=== PATIENT | female | born 1985 | race American Indian/Alaskan Native ===

== ENCOUNTER 2017-05-05 16:49 | Emergency (ER) | payer OTHER ==
[2017-05-05 17:03] VITALS: BMI 28.5
[2017-05-05 17:08] VITALS: TEMP 97.8
[2017-05-05] MEDS ORDERED: Sodium Chloride 0.9% 1,000 ML IV STA (17:19)
--- NOTE | 2017-05-05 17:28 | ED PDOC ---
Arrival/HPI - General Chief Complaint: GI Problem Time Seen by Provider: 05/05/17 17:16 Historian: Patient - History of Present Illness Narrative History of Present Illness (Text): 05/05/17 17:23 32yo female with no PMHx present with complaint of nausea, vomiting x 2, headache, dizziness and chills. states symptoms started after eating breakfast in a Cafeteria this morning. States the symptoms is similar to symptoms she had in the past with "stomach bug". states she came to ED because her job won't let her go home and they require her to go to the ED first. she denies abdominal pain, diarrhea, constipation, fever, chills, focal weakness, visual changes, urinary symptoms, sick contact, any other complaint. Past Medical History - Provider Review Nursing Documentation Reviewed: Yes - Past History Past History: Non-Contributing - Infectious Disease Hx of Infectious Diseases: None - Tetanus Immunization Tetanus Immunization: Unknown - Past Medical History Past Medical History: No Previous - Hematological/Oncological Hx Anemia: Yes - Gastrointestinal Hx Gastrointestinal Disorders: No - Genitourinary/Gynecological Other/Comment: dysfuntional utrus bleeing - Psychiatric Hx Psychophysiologic Disorder: No Hx Anxiety: No Hx Bipolar Disorder: No Hx Depression: No Hx Emotional Abuse: No Hx Hallucinations: No Hx Panic Disorder: No Hx Post Traumatic Stress Disorder: No Hx Psychosis: No Hx Physical Abuse: No Hx Schizophrenia: No Hx Sexual Abuse: No Hx Substance Use: No - Past Surgical History Past Surgical History: No Previous - Surgical History Hx Section: Yes (1) - Anesthesia Hx Anesthesia: No Hx Anesthesia Reactions: No Hx Malignant Hyperthermia: No - Suicidal Assessment Feels Threatened In Home Enviroment: No Family/Social History - Physician Review Nursing Documentation Reviewed: Yes Family/Social History: Unknown Family HX Smoking Status: Former Smoker Hx Alcohol Use: No Hx Substance Use: No Hx Substance Use Treatment: No Allergies/Home Meds Allergies/Adverse Reactions: Allergies No Known Allergies Allergy (Verified 05/05/17 17:03) Home Medications: Home Meds Medication Instructions Recorded Confirmed Norethindrone AC-Eth Estradiol 1 tab PO DAILY 05/05/17 05/05/17 [Loestrin 21 1.5-30 Tablet] Review of Systems - Physician Review All systems were reviewed & negative as marked: Yes - Review of Systems Constitutional: Normal Eyes: Normal ENT: Normal Respiratory: Normal Cardiovascular: Normal Gastrointestinal: Nausea, Vomiting. absent: Abdominal Pain, Constipation, Diarrhea, Hematochezia, Hematemesis Genitourinary Female: Normal Musculoskeletal: Normal Skin: Normal Neurological: Headache, Dizziness. absent: Focal Weakness, Gait Changes, Speech Changes Endocrine: Normal Hemo/Lymphatic: Normal Psychiatric: Normal Physical Exam Vital Signs Reviewed: Yes Vital Signs Temp Pulse Resp BP Pulse Ox 05/05/17 19:00 81 16 125/76 100 05/05/17 17:07 97.8 F 86 14 131/87 99 Temperature: Afebrile Blood Pressure: Normal Pulse: Regular Respiratory Rate: Normal Appearance: Positive for: Well-Appearing, Non-Toxic, Comfortable Pain Distress: None Mental Status: Positive for: Alert and Oriented X 3 - Systems Exam Head: Present: Atraumatic, Normocephalic Pupils: Present: PERRL Extroacular Muscles: Present: EOMI Conjunctiva: Present: Normal Mouth: Present: Moist Mucous Membranes Neck: Present: Normal Range of Motion Respiratory/Chest: Present: Clear to Auscultation, Good Air Exchange. No: Respiratory Distress, Accessory Muscle Use Cardiovascular: Present: Regular Rate and Rhythm, Normal S1, S2. No: Murmurs Abdomen: Present: Normal Bowel Sounds, Other (Soft). No: Tenderness, Distention , Peritoneal Signs, Rebound, Guarding, McBurney's Point Tender, Rovsing's Sign Present Back: Present: Normal Inspection. No: CVA Tenderness Upper Extremity: Present: Normal Inspection. No: Cyanosis, Edema Lower Extremity: Present: Normal Inspection. No: Edema Neurological: Present: GCS=15, CN II-XII Intact, Speech Normal Skin: Present: Warm, Dry, Normal Color. No: Rashes Psychiatric: Present: Alert, Oriented x 3, Normal Insight, Normal Concentration Medical Decision Making ED Course and Treatment: 05/06/17 02:17 Pt with nausea, vomiting and headache. she was comfortable in ED. On reevaluation she states she feels much better. Lab was DW the pt. she was advised to follow BLAND diet. Referred to her PMD. TRT ED for any new or worsening symptoms. - Lab Interpretations Lab Results: 05/05/17 17:45 05/05/17 17:45 Lab Results 05/05/17 18:30: Urine Color Yellow, Urine Appearance Clear, Urine pH 8.0, Ur Specific [place] 1.015, Urine Protein Trace H, Urine Glucose (UA) Negative, Urine Ketones Trace H, Urine Blood Negative, Urine Nitrate Negative, Urine Bilirubin Negative, Urine Urobilinogen 1.0 H, Ur Leukocyte Esterase Negative, Urine RBC Negative, Urine WBC 1 - 3, Ur Epithelial Cells 3 - 4, Urine Bacteria Few 05/05/17 17:45: Sodium 138, Potassium 4.6, Chloride 99, Carbon Dioxide 28, Anion Gap 16, BUN 11, Creatinine 0.6, Est GFR ( Amer) > 60, Est GFR (Non- Af Amer) > 60, Random Glucose 87, Calcium 9.6, Total Bilirubin 0.7, AST 36, ALT 29, Alkaline Phosphatase 79, Total Protein 8.6 H, Albumin 4.6, Globulin 4.0, Albumin/Globulin Ratio 1.2, Lipase 30 05/05/17 17:45: PT 11.4, INR 1.06, APTT 28.7 05/05/17 17:45: WBC 5.0, RBC 4.34, Hgb 13.7, Hct 40.5, MCV 93.3, MCH 31.6, MCHC 33.8, RDW 12.0, Plt Count 180, MPV 12.4 H, Gran % 50.1, Lymph % (Auto) 36.3 H, Williamson % (Auto) 9.0 H, Eos % (Auto) 4.0, Baso % (Auto) 0.6, Gran # 2.51, Lymph # 1.8, Williamson # 0.5, Eos # 0.2, Baso # 0.03 - Medication Orders Current Medication Orders: Discontinued Medications Sodium Chloride (Sodium Chloride 0.9%) 1,000 mls @ 1,000 mls/hr IV .Q1H STA Stop: 05/05/17 18:18 Last Admin: 05/05/17 17:47 Dose: 1,000 mls/hr Ketorolac Tromethamine (Toradol) 30 mg IVP STAT STA Stop: 05/05/17 17:20 Last Admin: 05/05/17 18:33 Dose: 30 mg Ondansetron HCl (Zofran Inj) 4 mg IVP STAT STA Stop: 05/05/17 17:20 Last Admin: 05/05/17 18:33 Dose: 4 mg Disposition/Present on Arrival - Present on Arrival Any Indicators Present on Arrival: No History of DVT/PE: No History of Uncontrolled Diabetes: No Urinary Catheter: No History of Decub. Ulcer: No History Surgical Site Infection Following: None - Disposition Have Diagnosis and Disposition been Completed?: Yes Diagnosis: Vomiting, Headache Disposition: HOME/ ROUTINE Disposition Time: 18:55 Patient Plan: Discharge Condition: STABLE Discharge Instructions (ExitCare): Acute Nausea and Vomiting (ED) Additional Instructions: Follow up with your Doctor Follow BLAND diet for 24hrs Return to ED for any new or worsening symptoms Prescriptions: Ondansetron ODT [Zofran ODT] 4 mg PO Q6 #5 odt Referrals: Edin Vickers MD [Primary Care Provider] - Follow up with primary
[2017-05-05 18:01] LABS: ADD MANUAL DIFF? NO
[2017-05-05 18:07] LABS: BASO # 0.03 K/mm3 (0.0-2.0); BASO % 0.6 % (0.0-3.0); EOS # 0.2 (0.0-0.7); GRAN # 2.51 (1.4-6.5); GRAN % 50.1 % (50.0-68.0); HEMATOCRIT 40.5 % (36.0-48.0); LYMPH # 1.8 (1.2-3.4); LYMPH % 36.3 % (22.0-35.0); MEAN CELL VOLUME 93.3 fL (80.0-105.0); MEAN CORPUSCULAR HEMOGLOBIN 31.6 pg (25.0-35.0); MEAN CORPUSCULAR HGB CONC 33.8 g/dl (31.0-37.0); MEAN PLATELET VOLUME 12.4 fl (7.0-11.0); MONO # 0.5 (0.1-0.6); PLATELET COUNT 180 10^3/uL (120.0-450.0)
[2017-05-05 18:16] LABS: ALB/GLOB RATIO 1.2 (1.1-1.8); ALKALINE PHOSPHATASE 79 U/L (38-133); ALT/SGPT 29 U/L (7-56); AST/SGOT 36 U/L (15-39); BILIRUBIN,TOTAL 0.7 mg/dL (0.2-1.3); BLOOD UREA NITROGEN 11 mg/dL (7-21); CALCIUM 9.6 mg/dL (8.4-10.5); CARBON DIOXIDE 28 mmol/L (21-33); CHLORIDE 99 mmol/L (98-107); GFR AFRICAN-AMERICAN > 60; GLUCOSE,RANDOM 87 mg/dL (70-110); LIPASE 30 U/L (23-300); POTASSIUM 4.6 mmol/L (3.6-5.0); SODIUM 138 mmol/L (132-148); TOTAL PROTEIN 8.6 g/dL (5.8-8.3)
[2017-05-05 18:18] LABS: INR 1.06 (0.93-1.08); PARTIAL THROMBOPLASTIN TIME 28.7 Seconds (23.7-30.8)
[2017-05-05 18:44] LABS: URINE BILIRUBIN NEGATIVE (NEGATIVE); URINE BLOOD NEGATIVE (NEGATIVE); URINE GLUCOSE (UA) NEGATIVE (NEGATIVE); URINE KETONE TRACE mg/dL (NEGATIVE); URINE LEUKOCYTE ESTERASE NEGATIVE Leu/uL (NEGATIVE); URINE PROTEIN TRACE mg/dL (<30 mg/dL)
[2017-05-05 18:46] LABS: URINE APPEARANCE CLEAR (CLEAR); URINE COLOR YELLOW (YELLOW)
[2017-05-05 18:49] LABS: URINE BACTERIA FEW (NEG); URINE RBC NEGATIVE /hpf (0-2)
[2017-05-05 19:08] VITALS: BP 125/76; PULSE 81; RESP 16; O2SAT 100
== END 2017-05-05 19:08 | disposition home or self-care (01) ==
LOC: ED 16:49
DX: R51 Headache (principal); R11.10 Vomiting, unspecified
CPT/HCPCS: 80053; 81001; 83690; 85025; 85610; 85730; 96361; 96374; 96375; 99283; J1885; J2405; J7040

== ENCOUNTER 2017-05-22 00:51 | Emergency (ER) | payer OTHER ==
[2017-05-22 00:53] VITALS: BMI 28.1
--- NOTE | 2017-05-22 00:53 | ED PDOC ---
Arrival/HPI - General Time Seen by Provider: 05/22/17 00:52 Historian: Patient - History of Present Illness Narrative History of Present Illness (Text): 05/22/17 00:52 32 year old female, with no significant past medical history, who presents to the Emergency department with complaints of sore throat for the past 2 days. The patient notes she also has an associated cough. She denies any fever, chills , rhinorrhea, nausea, vomiting, diarrhea, or any other symptoms at this time. Time/Duration: < week (2 Days ) Symptom Onset: Gradual Symptom Course: Unchanged Activities at Onset: Rest Context: Home Past Medical History - Provider Review Nursing Documentation Reviewed: Yes - Past History Past History: Non-Contributing - Infectious Disease Hx of Infectious Diseases: None - Tetanus Immunization Tetanus Immunization: Unknown - Past Medical History Past Medical History: No Previous - Hematological/Oncological Hx Anemia: Yes - Gastrointestinal Hx Gastrointestinal Disorders: No - Genitourinary/Gynecological Other/Comment: dysfuntional utrus bleeing - Psychiatric Hx Psychophysiologic Disorder: No Hx Anxiety: No Hx Bipolar Disorder: No Hx Depression: No Hx Emotional Abuse: No Hx Hallucinations: No Hx Panic Disorder: No Hx Post Traumatic Stress Disorder: No Hx Psychosis: No Hx Physical Abuse: No Hx Schizophrenia: No Hx Sexual Abuse: No Hx Substance Use: No - Past Surgical History Past Surgical History: No Previous - Surgical History Hx Section: Yes (1) - Anesthesia Hx Anesthesia: No Hx Anesthesia Reactions: No Hx Malignant Hyperthermia: No - Suicidal Assessment Feels Threatened In Home Enviroment: No Family/Social History - Physician Review Nursing Documentation Reviewed: Yes Family/Social History: Unknown Family HX Smoking Status: Former Smoker Hx Alcohol Use: No Hx Substance Use: No Hx Substance Use Treatment: No Allergies/Home Meds Allergies/Adverse Reactions: Allergies No Known Allergies Allergy (Verified 05/22/17 00:53) Review of Systems - Physician Review All systems were reviewed & negative as marked: Yes - Review of Systems Constitutional: Normal. absent: Fevers ENT: Sore Throat. absent: Rhinorrhea Respiratory: Cough Gastrointestinal: absent: Diarrhea, Nausea, Vomiting Physical Exam Vital Signs Reviewed: Yes Vital Signs Temp Pulse Resp BP Pulse Ox 05/22/17 01:00 132/78 05/22/17 00:59 98.8 F 105 H 16 99 Temperature: Afebrile Blood Pressure: Normal Pulse: Regular Respiratory Rate: Normal Appearance: Positive for: Well-Appearing, Non-Toxic, Comfortable Mental Status: Positive for: Alert and Oriented X 3 - Systems Exam Head: Present: Atraumatic, Normocephalic Pupils: Present: PERRL Extroacular Muscles: Present: EOMI Conjunctiva: Present: Normal Mouth: Present: Moist Mucous Membranes Pharnyx: Present: ERYTHEMA (pharyngeal erythema). No: EXUDATE, TONSILS ENLARGED , Peritonsilar Swelling, Uvular Deviation, Muffled/Hoarse Voice, Strider, Soft Palate/Uvular Edema Neck: Present: Normal Range of Motion Respiratory/Chest: Present: Clear to Auscultation, Good Air Exchange. No: Respiratory Distress, Accessory Muscle Use Cardiovascular: Present: Regular Rate and Rhythm, Normal S1, S2. No: Murmurs Abdomen: Present: Normal Bowel Sounds. No: Tenderness, Distention, Peritoneal Signs Back: Present: Normal Inspection Upper Extremity: Present: Normal Inspection. No: Cyanosis, Edema Lower Extremity: Present: Normal Inspection. No: Edema Neurological: Present: GCS=15, CN II-XII Intact, Speech Normal Skin: Present: Warm, Dry, Normal Color. No: Rashes Psychiatric: Present: Alert, Oriented x 3, Normal Insight, Normal Concentration Medical Decision Making ED Course and Treatment: 05/22/17 00:52 Impression: 32 year old female with cough and sore throat. Differential Diagnosis included but are not limited to: pharyngitis vs. URI Plan: -- Amoxil -- Decadron -- Reassess and disposition Prior Visits: Notes and results from previous visits were reviewed. On 05/05/17, presented to the Emergency department with vomiting and nausea, discharged home. Progress Notes: 05/22/17 02:25 On re-evaluation, the patient feels better and is in no acute distress. I have discussed the results and plan with the patient, who expresses understanding. Patient in agreement with plan to discharged home. Patient is stable for discharge. Patient was instructed to follow up with physician/clinic in 1-2 days or return if symptoms worsen or new concerning symptoms arise. Re-evaluation Time: 02:27 Reassessment Condition: Re-examined, Improved - Medication Orders Current Medication Orders: Discontinued Medications Amoxicillin (Amoxil 500 Mg Cap) 500 mg PO STAT STA PRN Reason: Protocol Stop: 05/22/17 01:07 Last Admin: 05/22/17 01:54 Dose: 500 mg Dexamethasone (Decadron Inj) 10 mg IM STAT STA Stop: 05/22/17 01:08 Last Admin: 05/22/17 01:54 Dose: 10 mg - Joe Statement The provider has reviewed the documentation as recorded by the Joe Wisdom training under Anna Marie Arriola All medical record entries made by the Andersibmarito were at my direction and personally dictated by me. I have reviewed the chart and agree that the record accurately reflects my personal performance of the history, physical exam, medical decision making, and the department course for this patient. I have also personally directed, reviewed, and agree with the discharge instructions and disposition. Disposition/Present on Arrival - Present on Arrival Any Indicators Present on Arrival: No History of DVT/PE: No History of Uncontrolled Diabetes: No Urinary Catheter: No History Surgical Site Infection Following: None - Disposition Have Diagnosis and Disposition been Completed?: Yes Diagnosis: Pharyngitis Disposition: HOME/ ROUTINE Disposition Time: 02:28 Condition: GOOD Discharge Instructions (ExitCare): Pharyngitis (ED) Prescriptions: Amoxicillin 875 mg PO BID #20 tab Forms: WORK NOTE
[2017-05-22 01:00] VITALS: PULSE 105; RESP 16; TEMP 98.8; O2SAT 99
[2017-05-22 01:01] VITALS: BP 132/78
== END 2017-05-22 02:49 | disposition home or self-care (01) ==
LOC: ED 00:51
DX: J02.9 Acute pharyngitis, unspecified (principal)
CPT/HCPCS: 96372; 99282; J1100

== ENCOUNTER 2017-10-14 14:05 | Emergency (ER) | payer OTHER ==
[2017-10-14 14:05] VITALS: BMI 28.1
[2017-10-14 14:12] VITALS: BP 109/76; PULSE 95; RESP 16; TEMP 97.8; O2SAT 98
--- NOTE | 2017-10-14 14:49 | ED PDOC ---
Arrival/HPI - General Chief Complaint: ENT Problem Time Seen by Provider: 10/14/17 14:48 Historian: Patient - History of Present Illness Narrative History of Present Illness (Text): 10/14/17 14:48 32yo female with no PMhx present with two days history of sore throat. + Odynophagia. Denies dysphagia, fever, chills, abdominal pain, sick contact, any other complaint. Past Medical History - Provider Review Nursing Documentation Reviewed: Yes - Past History Past History: Non-Contributing - Infectious Disease Hx of Infectious Diseases: None - Tetanus Immunization Tetanus Immunization: Unknown - Past Medical History Past Medical History: No Previous - Hematological/Oncological Hx Anemia: Yes - Gastrointestinal Hx Gastrointestinal Disorders: No - Genitourinary/Gynecological Other/Comment: dysfuntional utrus bleeing - Psychiatric Hx Psychophysiologic Disorder: No Hx Anxiety: No Hx Bipolar Disorder: No Hx Depression: No Hx Emotional Abuse: No Hx Hallucinations: No Hx Panic Disorder: No Hx Post Traumatic Stress Disorder: No Hx Psychosis: No Hx Physical Abuse: No Hx Schizophrenia: No Hx Sexual Abuse: No Hx Substance Use: No - Past Surgical History Past Surgical History: No Previous - Surgical History Hx Section: Yes (1) - Anesthesia Hx Anesthesia: No Hx Anesthesia Reactions: No Hx Malignant Hyperthermia: No - Suicidal Assessment Feels Threatened In Home Enviroment: No Family/Social History - Physician Review Nursing Documentation Reviewed: Yes Family/Social History: Unknown Family HX Smoking Status: Former Smoker Hx Alcohol Use: No Hx Substance Use: No Hx Substance Use Treatment: No Allergies/Home Meds Allergies/Adverse Reactions: Allergies No Known Allergies Allergy (Verified 10/14/17 14:12) Review of Systems - Physician Review All systems were reviewed & negative as marked: Yes - Review of Systems Constitutional: Normal Eyes: Normal ENT: Sore Throat Respiratory: Normal Cardiovascular: Normal Gastrointestinal: Normal Genitourinary Female: Normal Musculoskeletal: Normal Skin: Normal Neurological: Normal Endocrine: Normal Hemo/Lymphatic: Normal Psychiatric: Normal Physical Exam Vital Signs Reviewed: Yes Vital Signs Temp Pulse Resp BP Pulse Ox 10/14/17 14:11 97.8 F 95 H 16 109/76 98 Temperature: Afebrile Blood Pressure: Normal Pulse: Regular Respiratory Rate: Normal Appearance: Positive for: Well-Appearing, Non-Toxic, Comfortable Pain Distress: None Mental Status: Positive for: Alert and Oriented X 3 - Systems Exam Head: Present: Atraumatic, Normocephalic Pupils: Present: PERRL Extroacular Muscles: Present: EOMI Conjunctiva: Present: Normal Mouth: Present: Moist Mucous Membranes Pharnyx: Present: ERYTHEMA. No: EXUDATE, TONSILS ENLARGED, Peritonsilar Swelling, Uvular Deviation, Muffled/Hoarse Voice, Strider Neck: Present: Normal Range of Motion Respiratory/Chest: Present: Clear to Auscultation, Good Air Exchange. No: Respiratory Distress, Accessory Muscle Use Cardiovascular: Present: Regular Rate and Rhythm, Normal S1, S2. No: Murmurs Abdomen: Present: Normal Bowel Sounds. No: Tenderness, Distention, Peritoneal Signs Back: Present: Normal Inspection Upper Extremity: Present: Normal Inspection. No: Cyanosis, Edema Lower Extremity: Present: Normal Inspection. No: Edema Neurological: Present: GCS=15, CN II-XII Intact, Speech Normal Skin: Present: Warm, Dry, Normal Color. No: Rashes Psychiatric: Present: Alert, Oriented x 3, Normal Insight, Normal Concentration Medical Decision Making - Medication Orders Current Medication Orders: Discontinued Medications Amoxicillin (Amoxil 500 Mg Cap) 500 mg PO STAT STA PRN Reason: Protocol Stop: 10/14/17 14:49 Last Admin: 10/14/17 14:58 Dose: 500 mg Ibuprofen (Motrin Tab) 600 mg PO STAT STA Stop: 10/14/17 14:50 Last Admin: 10/14/17 14:58 Dose: 600 mg MAR Pain/Vitals Document 10/14/17 14:58 TA (Rec: 10/14/17 14:58 TA [facility] [id number]) Pain Reassessment Is This A Pain ReAssessment? Yes Sleep Is patient sleeping during reassessment? No Presence of Pain Presence of Pain Yes Pain Scale Used Pain Scale Used Numeric Location Pain Location Body Site Throat Disposition/Present on Arrival - Present on Arrival Any Indicators Present on Arrival: No History of DVT/PE: No History of Uncontrolled Diabetes: No Urinary Catheter: No History of Decub. Ulcer: No History Surgical Site Infection Following: None - Disposition Have Diagnosis and Disposition been Completed?: Yes Diagnosis: Pharyngitis Disposition: HOME/ ROUTINE Disposition Time: 15:10 Patient Plan: Discharge Condition: STABLE Discharge Instructions (ExitCare): Pharyngitis (ED) Additional Instructions: Take medication as directed Follow up with your Doctor Return to ED for any new or worsening symptoms Prescriptions: Amoxicillin 875 mg PO BID #14 tablet Referrals: Edin Vickers MD [Primary Care Provider] - Follow up with primary Forms: [employer] (Hungarian)
== END 2017-10-14 15:21 | disposition home or self-care (01) ==
LOC: ED 14:05
DX: J02.9 Acute pharyngitis, unspecified (principal); Z87.891 Personal history of nicotine dependence

== ENCOUNTER 2018-10-08 23:01 | Emergency (ER) | payer OTHER ==
[2018-10-08 23:13] VITALS: BMI 29.2
[2018-10-08 23:15] VITALS: BP 119/85; PULSE 87; RESP 18; TEMP 98.5; O2SAT 100
--- NOTE | 2018-10-08 23:36 | ED PDOC ---
Arrival/HPI - General Chief Complaint: Back Pain Historian: Patient - History of Present Illness Narrative History of Present Illness (Text): 10/08/18 23:22 33yo female with no pmhx who present with complaint on nonradiating constant sharp lower back pain that started this night. Patient states pain started when she was lifting bundle of linens at work and she felt a pulling on her lower back. Notes that pain was very mild and intermittent earlier, but then became constant and sharp. Pain is worse with any movement. She denies saddle anesthesia, abdominal pain, focal weakness, urinary/fecal incontinence, urinary symptoms, any other complaint. Past Medical History - Provider Review Nursing Documentation Reviewed: Yes - Past History Past History: Non-Contributing - Infectious Disease Hx of Infectious Diseases: None - Tetanus Immunization Tetanus Immunization: Unknown - Past Medical History Past Medical History: No Previous - Hematological/Oncological Hx Anemia: Yes - Gastrointestinal Hx Gastrointestinal Disorders: No - Genitourinary/Gynecological Other/Comment: dysfuntional utrus bleeing - Psychiatric Hx Psychophysiologic Disorder: No Hx Anxiety: No Hx Bipolar Disorder: No Hx Depression: No Hx Emotional Abuse: No Hx Hallucinations: No Hx Panic Disorder: No Hx Post Traumatic Stress Disorder: No Hx Psychosis: No Hx Physical Abuse: No Hx Schizophrenia: No Hx Sexual Abuse: No Hx Substance Use: No - Past Surgical History Past Surgical History: No Previous - Surgical History Hx Section: Yes (1) - Anesthesia Hx Anesthesia: No Hx Anesthesia Reactions: No Hx Malignant Hyperthermia: No - Suicidal Assessment Feels Threatened In Home Enviroment: No Family/Social History - Physician Review Nursing Documentation Reviewed: Yes Family/Social History: Unknown Family HX Smoking Status: Former Smoker Hx Alcohol Use: No Hx Substance Use: No Hx Substance Use Treatment: No Allergies/Home Meds Allergies/Adverse Reactions: Allergies No Known Allergies Allergy (Verified 10/08/18 23:12) Review of Systems - Physician Review All systems were reviewed & negative as marked: Yes - Review of Systems Constitutional: Normal Eyes: Normal ENT: Normal Respiratory: Normal Cardiovascular: Normal Gastrointestinal: Normal Genitourinary Female: Normal Musculoskeletal: Back Pain Skin: Normal Neurological: Normal Endocrine: Normal Hemo/Lymphatic: Normal Psychiatric: Normal Physical Exam Vital Signs Reviewed: Yes Vital Signs Temp Pulse Resp BP Pulse Ox 10/08/18 23:12 98.5 F 87 18 119/85 100 Temperature: Afebrile Blood Pressure: Normal Pulse: Regular Respiratory Rate: Normal Appearance: Positive for: Well-Appearing, Non-Toxic, Comfortable Pain Distress: None Mental Status: Positive for: Alert and Oriented X 3 - Systems Exam Head: Present: Atraumatic, Normocephalic Pupils: Present: PERRL Extroacular Muscles: Present: EOMI Conjunctiva: Present: Normal Mouth: Present: Moist Mucous Membranes Neck: Present: Normal Range of Motion Respiratory/Chest: Present: Clear to Auscultation, Good Air Exchange. No: Respiratory Distress, Accessory Muscle Use Cardiovascular: Present: Regular Rate and Rhythm, Normal S1, S2. No: Murmurs Abdomen: No: Tenderness, Distention, Peritoneal Signs Back: Present: Midline Tenderness, Pain with Leg Raise (B/L). No: Paraspinal Tenderness Upper Extremity: Present: Normal Inspection. No: Cyanosis, Edema Lower Extremity: Present: Normal Inspection. No: Edema Neurological: Present: GCS=15, CN II-XII Intact, Speech Normal Skin: Present: Warm, Dry, Normal Color. No: Rashes Psychiatric: Present: Alert, Oriented x 3, Normal Insight, Normal Concentration Medical Decision Making ED Course and Treatment: 10/09/18 00:20 PT in ED for back pain. She was ambulatory and neurologically intact. Toradol LS xray NO acute finding On r evaluation pt notes improvement of her pain Result was DW the pt. She will be DC home with NSAID and muscle relaxer for muscle relaxer Advised to rest and follow up with her PMD. - RAD Interpretation Radiology Orders: 10/08/18 23:21 LS SPINE WITH OBL > 18 YRS OLD [RAD] Stat - Medication Orders Current Medication Orders: Ketorolac Tromethamine (Toradol) 60 mg IM STAT STA Stop: 10/08/18 23:22 Disposition/Present on Arrival - Present on Arrival Any Indicators Present on Arrival: No History of DVT/PE: No History of Uncontrolled Diabetes: No Urinary Catheter: No History of Decub. Ulcer: No History Surgical Site Infection Following: None - Disposition Have Diagnosis and Disposition been Completed?: Yes Diagnosis: Low back strain Disposition: HOME/ ROUTINE Disposition Time: 00:30 Patient Plan: Discharge Condition: STABLE Discharge Instructions (ExitCare): Muscle Strain, Low Back Pain in Adults Additional Instructions: Rest, apply warm compress/shower to [facility] [place] [facility] Regarding your Work Related Injury, you are instructed to do all of the following by next day: 1. Notify [facility] [place] Employee Health Department of the sustained injury and arrange for any follow-up appointments if needed during the next business day. If the office is closed or no answer is received, please leave a detailed voice message. 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 Employee Health can be reached at [phone]. 2. If there is time lost, notify [facility] [place] Human Resources Department of the work related injury the next business day at [phone]. as directed Follow up with employee health Prescriptions: Cyclobenzaprine [Cyclobenzaprine HCl] 10 mg PO TID #12 tab Ibuprofen [Motrin Tab] 600 mg PO Q6 #20 tab Forms: [employer] (C[place] Verdean), WORK NOTE
--- NOTE | 2018-10-09 08:32 | RAD ---
Date of service: 10/08/2018 PROCEDURE: Radiographs of the Lumbar Spine. HISTORY: back pain s/p truama COMPARISON: No prior. FINDINGS: BONES: Normal alignment. No listhesis. No fracture. DISC SPACES: Unremarkable. OTHER FINDINGS: None. IMPRESSION: Unremarkable radiographs of the lumbar spine.
== END 2018-10-09 00:34 | disposition home or self-care (01) ==
LOC: ED 23:01
DX: S39.012A Strain of muscle, fascia and tendon of lower back, initial encounter (principal); X50.0XXA Overexertion from strenuous movement or load, initial encounter; Y92.89 Other specified places as the place of occurrence of the external cause; Y99.0 Civilian activity done for income or pay
CPT/HCPCS: 72110; 96372; 99282; J1885

== ENCOUNTER 2018-10-11 13:07 | Emergency (ER) | payer OTHER ==
[2018-10-11 13:21] VITALS: BMI 28.5
--- NOTE | 2018-10-11 13:40 | ED PDOC ---
Arrival/HPI <Gianni Madrigal - Last Filed: 10/11/18 15:25> - General Historian: Patient - History of Present Illness Narrative History of Present Illness (Text): 10/11/18 13:38 33 year old female with no pertinent past medical history presents to the emergency department for sore throat for the past couple of days. Patient admits to her daughter being sick in the home recently. Patient also admits to taking the flu shot. Patient denies any fevers, chills, nausea, vomiting, headaches, chills, myalgias, abdominal pain, changes in vision, or any other complaints. PMD: Dr. Vickers Medical history: Denies Surgical history: Time/Duration: < week Symptom Onset: Gradual Symptom Course: Unchanged Quality: Other Severity Level: 4 Activities at Onset: Rest Context: Sitting <Sandeep Laughlin - Last Filed: 10/11/18 17:33> - General Time Seen by Provider: 10/11/18 13:09 Past Medical History - Provider Review Nursing Documentation Reviewed: Yes - Past History Past History: Non-Contributing - Infectious Disease Hx of Infectious Diseases: None - Tetanus Immunization Tetanus Immunization: Unknown - Past Medical History Past Medical History: No Previous - Cardiac Hx Cardiac Disorders: No - Pulmonary Hx Respiratory Disorders: No - Neurological Hx Neurological Disorder: No - HEENT Hx HEENT Disorder: No - Renal Hx Renal Disorder: No - Endocrine/Metabolic Hx Endocrine Disorders: No - Hematological/Oncological Hx Blood Disorders: Yes Hx Anemia: Yes - Integumentary Hx Dermatological Disorder: No - Musculoskeletal/Rheumatological Hx Musculoskeletal Disorders: No - Gastrointestinal Hx Gastrointestinal Disorders: No - Genitourinary/Gynecological Hx Genitourinary Disorders: Yes Other/Comment: dysfuntional utrus bleeing - Psychiatric Hx Psychophysiologic Disorder: No Hx Substance Use: No - Past Surgical History Past Surgical History: No Previous - Surgical History Hx Section: Yes (1) - Anesthesia Hx Anesthesia: No Hx Anesthesia Reactions: No Hx Malignant Hyperthermia: No - Suicidal Assessment Feels Threatened In Home Enviroment: No <Sandeep Laughlin - Last Filed: 10/11/18 17:33> Family/Social History - Physician Review Nursing Documentation Reviewed: Yes Family/Social History: No Known Family HX Smoking Status: Former Smoker Hx Alcohol Use: No Hx Substance Use: No Hx Substance Use Treatment: No <Sandeep Laughlin - Last Filed: 10/11/18 17:33> Allergies/Home Meds <Gianni Madrigal - Last Filed: 10/11/18 15:25> <Sandeep Laughlin - Last Filed: 10/11/18 17:33> Allergies/Adverse Reactions: Allergies No Known Allergies Allergy (Verified 10/11/18 13:25) Review of Systems - Review of Systems Constitutional: Normal. absent: Fatigue, Weight Change, Fevers Eyes: Normal. absent: Vision Changes, Photophobia ENT: Sore Throat. absent: Rhinorrhea Respiratory: Normal. absent: SOB, Cough Cardiovascular: Normal. absent: Chest Pain, Palpitations Gastrointestinal: Normal. absent: Abdominal Pain, Nausea, Vomiting Musculoskeletal: Normal. absent: Arthralgias, Back Pain Skin: Normal. absent: Pruritis Neurological: Normal. absent: Headache, Dizziness Endocrine: Normal Hemo/Lymphatic: Normal. absent: Easy Bleeding Psychiatric: Normal. absent: Anxiety <Sandeep Laughlin - Last Filed: 10/11/18 17:33> Physical Exam Vital Signs Temp Pulse Resp BP Pulse Ox 10/11/18 14:45 97.5 F L 72 16 118/63 99 10/11/18 13:21 97.7 F 91 H 18 121/50 L 100 <Gianni Madrigal - Last Filed: 10/11/18 15:25> Vital Signs Reviewed: Yes Vital Signs Temp Pulse Resp BP Pulse Ox 10/11/18 13:21 97.7 F 91 H 18 121/50 L 100 Temperature: Afebrile Blood Pressure: Normal Pulse: Tachycardic Respiratory Rate: Normal Appearance: Positive for: Well-Appearing, Non-Toxic, Comfortable Pain Distress: Mild Mental Status: Positive for: Alert and Oriented X 3. No: Confused, Agitated - Systems Exam Head: Present: Atraumatic, Normocephalic, Abrasion Pupils: Present: PERRL. No: Sluggish, Non-Reactive Extroacular Muscles: Present: EOMI. No: Gaze Palsy, Entrapment Conjunctiva: Present: Normal. No: Injected, Icteric Mouth: Present: Moist Mucous Membranes. No: Dry, Normal Teeth Neck: Present: Normal Range of Motion. No: Meningeal Signs, JVD Respiratory/Chest: Present: Clear to Auscultation, Good Air Exchange. No: Wheezes Cardiovascular: Present: Normal S1, S2, Tachycardic Abdomen: Present: Normal Bowel Sounds. No: Tenderness, Distention Upper Extremity: Present: Normal Inspection. No: Cyanosis, Edema, Erythema Lower Extremity: Present: Normal Inspection. No: Edema, CALF TENDERNESS Neurological: Present: CN II-XII Intact, Speech Normal. No: Normal Cerebellar Funct, Gait Normal Skin: Present: Dry, Normal Color. No: Rashes, Hot, Cold Lymphatic: Present: Cervical Adenopathy (Left side) Psychiatric: Present: Alert, Oriented x 3, Normal Insight <Sandeep Laughlin - Last Filed: 10/11/18 17:33> Medical Decision Making ED Course and Treatment: Patient Seen with Resident: In agreement with resident note which contains more details about the patient. Patient seen and evaluated with resident. Came up with plan and treatment together. 33 year old female presents complaining of sore throat for the past couple of days. Plan: -- Amoxil 500mg Cap -- Rapid Strep Group A Antigen -- reassess and disposition - Lab Interpretations Lab Results: Lab Results 10/11/18 13:51: Grp A Beta Strep Ag Positive H - Medication Orders Current Medication Orders: Discontinued Medications Amoxicillin (Amoxil 500 Mg Cap) 1,000 mg PO STAT STA; Protocol Stop: 10/11/18 14:32 Last Admin: 10/11/18 14:45 Dose: 1,000 mg <Gianni Madrigal - Last Filed: 10/11/18 15:25> ED Course and Treatment: 10/11/18 13:44 33 year old female with no past medical history presents with a sore throat for the past couple of days. Viral pharyngitis vs. Bacterial pharyngitis Plan: Rapid Throat culture 10/11/18 15:27 Rapid throat culture positive. Patient stable and discharged home with PO Antibiotics. <Sandeep Laughlin - Last Filed: 10/11/18 17:33> - Scribe Statement The provider has reviewed the documentation as recorded by the Andersibe Uzma Ruano Provider Scribe Attestation: All medical record entries made by the Scribe were at my direction and pe rsonally dictated by me. I have reviewed the chart and agree that the record accurately reflects my personal performance of the history, physical exam, medical decision making, and the department course for this patient. I have also personally directed, reviewed, and agree with the discharge instructions and disposition. <Gianni Madrigal - Last Filed: 10/11/18 15:25> Disposition/Present on Arrival <Gianni Madrigal - Last Filed: 10/11/18 15:25> - Present on Arrival Any Indicators Present on Arrival: No History of DVT/PE: No History of Uncontrolled Diabetes: No Urinary Catheter: No History of Decub. Ulcer: No History Surgical Site Infection Following: None - Disposition Have Diagnosis and Disposition been Completed?: Yes Disposition Time: 15:40 Patient Plan: Discharge <Sandeep Laughlin - Last Filed: 10/11/18 17:33> - Disposition Diagnosis: Strep throat Disposition: HOME/ ROUTINE Condition: STABLE Discharge Instructions (ExitCare): Strep Throat (DC) Additional Instructions: 1. F/u with PMD within 2 days of discharge. 2.Return to hospital for any new or worsening symptoms. Prescriptions: Amoxicillin 875 mg PO BID #19 tab Forms: [employer] ([place]ian)
[2018-10-11 14:47] VITALS: BP 118/63; PULSE 72; RESP 16; TEMP 97.5; O2SAT 99
== END 2018-10-11 14:45 | disposition home or self-care (01) ==
LOC: ED 13:07
DX: J02.0 Streptococcal pharyngitis (principal); Z87.891 Personal history of nicotine dependence

== ENCOUNTER 2019-02-01 13:49 | Emergency (ER) | payer OTHER | END 2019-02-01 17:38 | disposition home or self-care (01) | LOC: ED 13:49 ==

== ENCOUNTER 2019-02-25 13:29 | Emergency (ER) | payer OTHER ==
[2019-02-25 13:37] VITALS: BMI 29.2
[2019-02-25 13:40] VITALS: BP 108/71; PULSE 98; RESP 18; TEMP 98.3; O2SAT 96
--- NOTE | 2019-02-25 14:14 | ED PDOC ---
Arrival/HPI - General Chief Complaint: ENT Problem Time Seen by Provider: 02/25/19 14:00 Historian: Patient - Critical Care Narrative Critical Care (Text): 02/25/19 14:12 34 yo female w/o PMHx come in for evaluation of sore throat gradually developed for past few days, (+0 exposure to strep pharyngitis. Pt denies high fever, chills, headache, dizziness, drooling, dysphagia, dyspnea, cough, SOB, wheezing, abd. pain, V/D. Ambulatory, not in any apparent distress. Past Medical History - Provider Review Nursing Documentation Reviewed: Yes - Travel History Have you recently traveled outside [place] w/in the past 3 mons?: No - Past History Past History: Non-Contributing - Infectious Disease Hx of Infectious Diseases: None - Tetanus Immunization Tetanus Immunization: Unknown - Past Medical History Past Medical History: No Previous - Cardiac Hx Cardiac Disorders: No - Pulmonary Hx Respiratory Disorders: No - Neurological Hx Neurological Disorder: No - HEENT Hx HEENT Disorder: No - Renal Hx Renal Disorder: No - Endocrine/Metabolic Hx Endocrine Disorders: No - Hematological/Oncological Hx Blood Disorders: Yes Hx Anemia: Yes - Integumentary Hx Dermatological Disorder: No - Musculoskeletal/Rheumatological Hx Musculoskeletal Disorders: No - Gastrointestinal Hx Gastrointestinal Disorders: No - Genitourinary/Gynecological Hx Genitourinary Disorders: Yes Other/Comment: dysfuntional utrus bleeing - Psychiatric Hx Psychophysiologic Disorder: No Hx Substance Use: No - Past Surgical History Past Surgical History: No Previous - Surgical History Hx Section: Yes (1) Other/Comment: leep surgery - Anesthesia Hx Anesthesia: Yes Hx Anesthesia Reactions: No Hx Malignant Hyperthermia: No - Suicidal Assessment Feels Threatened In Home Enviroment: No Family/Social History - Physician Review Nursing Documentation Reviewed: Yes Family/Social History: No Known Family HX Smoking Status: Former Smoker Hx Alcohol Use: No Hx Substance Use: No Hx Substance Use Treatment: No Allergies/Home Meds Allergies/Adverse Reactions: Allergies No Known Allergies Allergy (Verified 02/25/19 13:37) Review of Systems - Review of Systems Constitutional: Normal Eyes: Normal ENT: Sore Throat, Sinus Congestion. absent: Voice Changes Respiratory: Normal Cardiovascular: Normal Gastrointestinal: Normal Genitourinary Female: Normal Musculoskeletal: Normal Skin: Normal Neurological: Normal Endocrine: Normal Hemo/Lymphatic: Normal Psychiatric: Normal Physical Exam Vital Signs Reviewed: Yes Vital Signs Temp Pulse Resp BP Pulse Ox 02/25/19 13:40 98.3 F 98 H 18 108/71 96 Temperature: Afebrile Blood Pressure: Normal Pulse: Regular Respiratory Rate: Normal Appearance: Positive for: Well-Appearing, Non-Toxic, Comfortable Pain Distress: None Mental Status: Positive for: Alert and Oriented X 3 - Systems Exam Conjunctiva: Present: Normal Ears: Present: NORMAL TM (B/L), Normal Canal (B/L) Mouth: Present: Moist Mucous Membranes, Normal Lips. No: Drooling Pharnyx: Present: ERYTHEMA (B/L with mild edema), Other (uvual midline, no edmea.). No: EXUDATE Neck: Present: Trachea Midline. No: Meningeal Signs Respiratory/Chest: Present: Clear to Auscultation, Good Air Exchange. No: Respiratory Distress, Accessory Muscle Use Cardiovascular: Present: Regular Rate and Rhythm, Normal S1, S2. No: Murmurs Upper Extremity: Present: Normal Inspection Lower Extremity: Present: Normal Inspection Neurological: Present: GCS=15 Skin: Present: Warm, Dry, Normal Color. No: Rashes Psychiatric: Present: Alert, Oriented x 3 Medical Decision Making ED Course and Treatment: 02/25/19 On re-eval, pt sylvester febrile, hemodynamicaly stable. non-toxic PuslEOx 98% RA neck: Supple, (-) meningeal sign ENT: exam c/w acute pharyngitis, no drooling. uvula midline, no edema. Lungs: CTA B/L, BS equal B/L Pt advised. ref. to f/u with PMD In 2-3 days for re-eavl. return if any worsening or new changes. Disposition/Present on Arrival - Present on Arrival Any Indicators Present on Arrival: No History of DVT/PE: No History of Uncontrolled Diabetes: No Urinary Catheter: No History of Decub. Ulcer: No History Surgical Site Infection Following: None - Disposition Have Diagnosis and Disposition been Completed?: Yes Diagnosis: Acute pharyngitis Disposition: HOME/ ROUTINE Disposition Time: 14:11 Patient Plan: Discharge Condition: STABLE Discharge Instructions (ExitCare): Sore Throat in Adults Additional Instructions: Encourage fluids take medication as prescribed Warm salty water throat gurgles daily follow up with PMD in 2-3 days for re-evaluation Prescriptions: Amoxicillin/Clavulanate [Augmentin 875 MG-125 MG] 1 tab PO BID #14 tab
== END 2019-02-25 14:11 | disposition home or self-care (01) ==
LOC: ED 13:29
DX: J02.9 Acute pharyngitis, unspecified (principal); Z87.891 Personal history of nicotine dependence